=== PATIENT | male | born 1945 | race Two or more races ===

== ENCOUNTER 2024-06-08 19:23 | Inpatient (IN) | payer MEDICARE, OTHER ==
[~2024-06-08] VITALS: Ht 170.2 cm; Wt 82.6 kg
[2024-06-08] MEDS ORDERED: LIDOCAINE 2% JEL UROJET 10 ML MM ONE (19:40)
[2024-06-08] MEDS ORDERED: ACETAMINOPHEN 650 MG/SUPP.RECT RC ONE (19:43)
[2024-06-08] MEDS: PIPERACILLIN /TAZOBACTAM 3.375 G in IV D5W 50 ML IV ONE (19:56)
[2024-06-08] MEDS: IV NS 0.9% 1,000 ML BAG IV ONE (19:59)
[2024-06-08] MEDS: ACETAMINOPHEN 650 MG/SUPP.RECT RC ONE (19:59)
[2024-06-08] MEDS: ONDANSETRON HCL/PF 4 MG/2 ML VIAL IVP ONE (20:00)
[2024-06-08] MEDS ORDERED: ONDANSETRON HCL/PF 4 MG/2 ML VIAL ONE (20:00)
[2024-06-08 20:09] LABS: BASOPHILS % (AUTO) 0.1 % (0.0-2.0); HEMATOCRIT 30 % (39-51); HEMOGLOBIN 10.1 g/dL (13.5-17.5); LYMPHOCYTES # (AUTO) 0.3 K/uL (0.8-4.8); LYMPHOCYTES % (AUTO) 3.3 % (20.0-44.0); MEAN CORPUSCULAR HEMOGLOBIN 33 PG (26.0-33.0); MEAN CORPUSCULAR HGB CONC 33 g/dl (31.0-36.0); MEAN CORPUSCULAR VOLUME 99 fL (80-96); MONOCYTES % (AUTO) 84.4 % (2.0-12.0); NEUTROPHILS % (AUTO) 12.2 % (43.0-81.0); PLATELET COUNT (AUTO) 122 K/uL (150-450); RED BLOOD CELL COUNT(AUTO) 3.04 MIL/uL (4.5-6.0); RED CELL DISTRIBUTION WIDTH 19.7 % (11.5-15.0); WHITE BLOOD COUNT (AUTO) 8.3 K/uL (4.3-11.0)
[2024-06-08 20:23] LABS: CARBON DIOXIDE 19 mmol/L (21-32); CHLORIDE 105 mmol/L (98-107); CREATININE 3.1 mg/dL (0.6-1.3); GLUCOSE 75 mg/dL (74-106); POTASSIUM 3.2 mmol/L (3.5-5.1); SODIUM SERUM 139 mmol/L (136-145); UREA NITROGEN, BLOOD 33 mg/dL (7-18)
[2024-06-08 20:24] LABS: INR 1.61 (0.91-1.10); PARTIAL THROMBOPLASTIN TIME 35.8 SEC (24.3-34.3); PROTHROMBIN TIME 16.5 SECS (9.2-11.1)
[2024-06-08 20:31] LABS: ALANINE AMINOTRANSFERASE 16 U/L (12-78); ALBUMIN 2.9 g/dL (3.4-5.0); ALKALINE PHOSPHATASE 83 U/L (46-116); ASPARTATE AMINOTRANSFERASE 25 U/L (15-37); BILIRUBIN,DIRECT 0.6 mg/dL (0.0-0.2); BILIRUBIN,TOTAL 2.1 mg/dL (0.2-1.0); TOTAL PROTEIN, SERUM 7.3 g/dL (6.4-8.2)
[2024-06-08 20:35] LABS: BAND % (MANUAL) 9 % (0.0-5.0); LYMPHOCYTES % (MANUAL) 24 % (16-48); MONOCYTES % (MANUAL) 30 % (0-11.0); NEUTROPHILS % (MANUAL) 37 (42-76); PLATELET ESTIMATE DECREASED
[2024-06-08 20:40] LABS: LACTIC ACID 5.6 mmol/L (0.4-2.0)
[2024-06-08] MEDS ORDERED: NOREPINEPHRINE 8MG/250ML RTU 250 ML IV ONE (20:41)
[2024-06-08] MEDS ORDERED: dexaMETHasone SOD PHOSPHATE 1 ML ONE (20:51)
[2024-06-08] MEDS ORDERED: ALBUMIN 25% 100 ML IV ONE (20:52)
[2024-06-08] MEDS: dexaMETHasone SOD PHOSPHATE 10 MG/ML VIAL IV ONE (20:57)
[2024-06-08] MEDS: ALBUMIN 25% 12.5 GM/50 ML BOTTLE IV ONE (20:58)
[2024-06-08] MEDS: NOREPINEPHRINE 8 MG in IV NS 0.9% 250 ML IV ONE (21:06)
[2024-06-08] MEDS ORDERED: MAGNESIUM HYDROXIDE 30 ML UDC PO PRN (22:00)
[2024-06-08] MEDS ORDERED: MAG HYDROX/AL HYDROX/SIMETH 30 ML UDC PO PRN (22:00)
[2024-06-08] MEDS ORDERED: Z GUARD REMEDY 4 OZ OINT TP PRN (22:00)
[2024-06-08] MEDS ORDERED: ONDANSETRON HCL/PF 4 MG/2 ML VIAL IVP PRN (22:00)
[2024-06-08] MEDS ORDERED: DECITABINE PO (22:21)
[2024-06-08] MEDS ORDERED: PANT40TA2 PO (22:21)
[2024-06-08] MEDS ORDERED: [UNRECOGNIZED DRUG - OTHER] PO (22:21)
[2024-06-08 22:47] VITALS: BP 133/52; TEMP 99.5; O2SAT 95
[2024-06-08] MEDS: NOREPINEPHRINE 8 MG in IV D5W 242 ML IV PRN (22:57)
[2024-06-08 23:00] VITALS: BP 130/54; O2SAT 96
[2024-06-08] MEDS: IV NS 0.9% 1,000 ML IV SCH (23:00)
[2024-06-08 23:15] VITALS: BP 139/62; O2SAT 96
[2024-06-08] MEDS: VANCOMYCIN 1 GM in IV NS 0.9% 250 ML IV ONE (23:22)
[2024-06-08 23:30] VITALS: BP 108/47; O2SAT 96
[2024-06-08] MEDS: VANCOMYCIN 1 GM /D5W 250 ML PB IV ONE (23:33)
[2024-06-08] MEDS ORDERED: IV NS 0.9% 1,000 ML IV SCH (23:41)
[2024-06-08 23:45] VITALS: BP 95/43; O2SAT 96
[2024-06-09] VITALS (104 sets, daily range): BP systolic 69–130; BP diastolic 42–82; TEMP 98.5–99.5; O2SAT 94–99
[2024-06-09] MEDS ORDERED: PIPERACILLIN /TAZOBACTAM 3.375 G in IV D5W 50 ML IV SCH
[2024-06-09] MEDS ORDERED: IV NS 0.9% 250 ML IV PRN
[2024-06-09 01:26] LABS: APPEARANCE,URINE CLEAR (CLEAR); BILIRUBIN,URINE NEGATIVE (NEGATIVE); BLOOD, URINE 3+ Ery/uL (NEGATIVE); COLOR,URINE YELLOW (YELLOW); KETONES,URINE NEGATIVE (NEGATIVE); LEUKOCYTE ESTERASE ,URINE NEGATIVE (NEGATIVE); NITRITE, URINE NEGATIVE (NEGATIVE); PROTEIN,URINE 2+ mg/dl (NEGATIVE); UGLUCOSE TRACE mg/dL (NEGATIVE); UROBILINOGEN,URINE 0.2 EU/dL (0.2)
[2024-06-09 01:32] LABS: ADD URINE CULTURE NO; BACTERIA,URINE Rare /HPF (None Seen); SQUAMOUS EPITHELIAL CELL,UR Rare /HPF (None Seen); WBC,URINE 0-2 /HPF (0-3)
[2024-06-09 04:37] LABS: BASOPHILS % (AUTO) 0.2 % (0.0-2.0); EOSINOPHILS % (AUTO) 0.2 % (0.0-6.0); HEMATOCRIT 35 % (39-51); HEMOGLOBIN 11.3 g/dL (13.5-17.5); LYMPHOCYTES # (AUTO) 0.3 K/uL (0.8-4.8); MEAN CORPUSCULAR HEMOGLOBIN 33 PG (26.0-33.0); MEAN CORPUSCULAR HGB CONC 33 g/dl (31.0-36.0); MEAN CORPUSCULAR VOLUME 100 fL (80-96); MONOCYTES # (AUTO) 11.8 K/uL (0.1-1.30); MONOCYTES % (AUTO) 69.1 % (2.0-12.0); NEUTROPHILS # (AUTO) 4.9 K/uL (1.8-8.9); NEUTROPHILS % (AUTO) 28.5 % (43.0-81.0); PLATELET COUNT (AUTO) 118 K/uL (150-450); RED BLOOD CELL COUNT(AUTO) 3.46 MIL/uL (4.5-6.0); RED CELL DISTRIBUTION WIDTH 20.8 % (11.5-15.0); WHITE BLOOD COUNT (AUTO) 17.1 K/uL (4.3-11.0)
[2024-06-09 05:05] LABS: ALANINE AMINOTRANSFERASE 33 U/L (12-78); ALBUMIN 3.2 g/dL (3.4-5.0); ALKALINE PHOSPHATASE 68 U/L (46-116); ASPARTATE AMINOTRANSFERASE 108 U/L (15-37); BILIRUBIN,TOTAL 1.7 mg/dL (0.2-1.0); CALCIUM, SERUM 8.5 mg/dL (8.5-10.1); CARBON DIOXIDE 18 mmol/L (21-32); CHLORIDE 105 mmol/L (98-107); CREATININE 3.2 mg/dL (0.6-1.3); GLUCOSE 88 mg/dL (74-106); SODIUM SERUM 139 mmol/L (136-145); TOTAL PROTEIN, SERUM 7.9 g/dL (6.4-8.2); UREA NITROGEN, BLOOD 40 mg/dL (7-18)
[2024-06-09 05:45] LABS: ANISOCYTOSIS 1+; BAND % (MANUAL) 1 % (0.0-5.0); EOSINOPHILS % (MANUAL) 0 % (0-4); LYMPHOCYTES % (MANUAL) 2 % (16-48); MONOCYTES % (MANUAL) 66 % (0-11.0); NEUTROPHILS % (MANUAL) 31 (42-76); PLATELET ESTIMATE DECREASED
[2024-06-09] MEDS: PIPERACI/TAZO 3.375GM/D5W 50ML PB IV ONE (06:11)
[2024-06-09] MEDS: PIPERACILLIN /TAZOBACTAM 3.375 G in IV D5W 50 ML IV ONE (06:11)
[2024-06-09] MEDS: VANCOMYCIN 500 MG in IV D5W 100 ML IV ONE (08:12)
[2024-06-09] MEDS ORDERED: ALLO300T2 PO (09:13)
[2024-06-09] MEDS ORDERED: ALLOPURINAL PO (09:13)
[2024-06-09] MEDS: PANTOPRAZOLE 40 MG VIAL IV SCH (09:35)
[2024-06-09] MEDS: dexaMETHasone SOD PHOSPHATE 10 MG/ML VIAL IV SCH (09:35)
[2024-06-09] MEDS: ZOSYN IVPB 2.25 G in IV D5W 50ml IV SCH (12:11)
[2024-06-09] MEDS: LEVOFLOXACIN 500 MG /D5W 100ML 100 ML IV ONE (12:16)
[2024-06-09] MEDS: ACETAMINOPHEN 325 MG TABLET PO PRN (13:05)
[2024-06-09] MEDS: DOXYCYCLINE HYCLATE (100 MG) 100 MG TABLET PO SCH (21:10)
[2024-06-10] VITALS (85 sets, daily range): BP systolic 82–153; BP diastolic 43–91; TEMP 97.9–98.5; O2SAT 95–99
[2024-06-10] MEDS: ASPIRIN 81 MG TAB.CHEW PO ONE (00:43)
[2024-06-10 05:03] LABS: BASOPHILS % (AUTO) 0.1 % (0.0-2.0); HEMATOCRIT 35 % (39-51); HEMOGLOBIN 11.7 g/dL (13.5-17.5); LYMPHOCYTES # (AUTO) 0.3 K/uL (0.8-4.8); LYMPHOCYTES % (AUTO) 1.9 % (20.0-44.0); MEAN CORPUSCULAR HEMOGLOBIN 33 PG (26.0-33.0); MEAN CORPUSCULAR HGB CONC 34 g/dl (31.0-36.0); MEAN CORPUSCULAR VOLUME 99 fL (80-96); MONOCYTES # (AUTO) 10.7 K/uL (0.1-1.30); MONOCYTES % (AUTO) 59.7 % (2.0-12.0); NEUTROPHILS # (AUTO) 6.9 K/uL (1.8-8.9); NEUTROPHILS % (AUTO) 38.3 % (43.0-81.0); PLATELET COUNT (AUTO) 94 K/uL (150-450); RED BLOOD CELL COUNT(AUTO) 3.55 MIL/uL (4.5-6.0); RED CELL DISTRIBUTION WIDTH 20.7 % (11.5-15.0); WHITE BLOOD COUNT (AUTO) 17.9 K/uL (4.3-11.0)
[2024-06-10 05:17] LABS: ALANINE AMINOTRANSFERASE 36 U/L (12-78); ALBUMIN 2.9 g/dL (3.4-5.0); ALKALINE PHOSPHATASE 62 U/L (46-116); ASPARTATE AMINOTRANSFERASE 80 U/L (15-37); BILIRUBIN,TOTAL 1.9 mg/dL (0.2-1.0); CALCIUM, SERUM 8.8 mg/dL (8.5-10.1); CARBON DIOXIDE 23 mmol/L (21-32); CHLORIDE 105 mmol/L (98-107); CREATININE 2.3 mg/dL (0.6-1.3); GLUCOSE 111 mg/dL (74-106); MAGNESIUM 1.7 mg/dL (1.8-2.4); PHOSPHORUS 3.1 mg/dL (2.5-4.9); POTASSIUM 4.5 mmol/L (3.5-5.1); SODIUM SERUM 139 mmol/L (136-145); TOTAL PROTEIN, SERUM 7.6 g/dL (6.4-8.2); UREA NITROGEN, BLOOD 44 mg/dL (7-18)
[2024-06-10 05:24] LABS: CREATINE KINASE, TOTAL 314 U/L (39-308)
[2024-06-10 06:00] LABS: EOSINOPHILS % (MANUAL) 0 % (0-4); LYMPHOCYTES % (MANUAL) 6 % (16-48); NEUTROPHILS % (MANUAL) 42 (42-76)
[2024-06-10 06:01] LABS: ANISOCYTOSIS 1+; BASOPHILS % (MANUAL) 0 % (0.0-2.0); MONOCYTES % (MANUAL) 52 % (0-11.0); PLATELET ESTIMATE DECREASED
[2024-06-10] MEDS: PANTOPRAZOLE 40 MG TABLET.DR PO SCH (08:39)
[2024-06-10] MEDS ORDERED: HYDROCORTISONE SOD SUCCINATE 100 MG/2 ML VIAL IV SCH (09:30)
[2024-06-10] MEDS: MAGNESIUM OXIDE 400 MG TABLET PO ONE (10:23)
[2024-06-10] MEDS ORDERED: VANCOMYCIN 750 MG in IV D5W 250 ML IV SCH (16:00)
[2024-06-10] MEDS ORDERED: CEFEPIME 1 GM VIAL ONE (21:58)
[2024-06-10] MEDS: CEFEPIME 1 GM in IV D5W 50 ML IV SCH (22:06)
[2024-06-11] VITALS (20 sets, daily range): BP systolic 86–106; BP diastolic 55–67; TEMP 97.8–98.2; O2SAT 95–99
[2024-06-11 04:46] LABS: BASOPHILS % (AUTO) 0.1 % (0.0-2.0); EOSINOPHILS % (AUTO) 0.1 % (0.0-6.0); HEMATOCRIT 32 % (39-51); HEMOGLOBIN 11.2 g/dL (13.5-17.5); LYMPHOCYTES # (AUTO) 0.3 K/uL (0.8-4.8); LYMPHOCYTES % (AUTO) 6.6 % (20.0-44.0); MEAN CORPUSCULAR HEMOGLOBIN 34 PG (26.0-33.0); MEAN CORPUSCULAR HGB CONC 35 g/dl (31.0-36.0); MEAN CORPUSCULAR VOLUME 97 fL (80-96); MONOCYTES # (AUTO) 2.1 K/uL (0.1-1.30); MONOCYTES % (AUTO) 40.2 % (2.0-12.0); NEUTROPHILS # (AUTO) 2.8 K/uL (1.8-8.9); PLATELET COUNT (AUTO) 212 K/uL (150-450); RED CELL DISTRIBUTION WIDTH 21.4 % (11.5-15.0); WHITE BLOOD COUNT (AUTO) 5.3 K/uL (4.3-11.0)
[2024-06-11 05:54] LABS: ANISOCYTOSIS 1+; BASOPHILS % (MANUAL) 0 % (0.0-2.0); EOSINOPHILS % (MANUAL) 0 % (0-4); LYMPHOCYTES % (MANUAL) 9 % (16-48); MONOCYTES % (MANUAL) 33 % (0-11.0); NEUTROPHILS % (MANUAL) 58 (42-76); PLATELET ESTIMATE ADEQUATE
[2024-06-11 06:47] LABS: ALANINE AMINOTRANSFERASE 33 U/L (12-78); ALBUMIN 2.7 g/dL (3.4-5.0); ALKALINE PHOSPHATASE 57 U/L (46-116); ASPARTATE AMINOTRANSFERASE 30 U/L (15-37); BILIRUBIN,TOTAL 1.6 mg/dL (0.2-1.0); CALCIUM, SERUM 9.1 mg/dL (8.5-10.1); CARBON DIOXIDE 22 mmol/L (21-32); CHLORIDE 105 mmol/L (98-107); CREATININE 1.5 mg/dL (0.6-1.3); GLUCOSE 109 mg/dL (74-106); POTASSIUM 4.3 mmol/L (3.5-5.1); SODIUM SERUM 135 mmol/L (136-145); TOTAL PROTEIN, SERUM 7.3 g/dL (6.4-8.2); UREA NITROGEN, BLOOD 55 mg/dL (7-18)
[2024-06-11 11:08] LABS: *SPE A/G RATIO 0.6 (0.7-1.7); *SPE ALBUMIN 2.8 g/dL (2.9-4.4); *SPE ALPHA-1-GLOBULIN 0.3 g/dL (0.0-0.4); *SPE ALPHA-2-GLOBULIN 0.6 g/dL (0.4-1.0); *SPE BETA GLOBULIN 0.8 g/dL (0.7-1.3); *SPE GLOBULIN, TOTAL 4.4 g/dL (2.2-3.9); *SPE M-SPIKE Not Observed g/dL (Not Observed); *SPE PROTEIN TOTAL 7.2 g/dL (6.0-8.5); *SPEGAMMA GLOBULIN 2.7 g/dL (0.4-1.8)
[2024-06-11] MEDS: LEVOFLOXACIN 250 MG /D5W 50 ML 250 MG in PREMIX 1 EA IV SCH (11:22)
[2024-06-11 12:09] LABS: PTH, INTACT 21 pg/mL (15-65)
[2024-06-11 14:33] LABS: MAGNESIUM 1.7 mg/dL (1.8-2.4); PHOSPHORUS 2.7 mg/dL (2.5-4.9)
[2024-06-12] VITALS: BP 94/56; TEMP 98.6; O2SAT 96
[2024-06-12 06:00] VITALS: O2SAT 97
[2024-06-12 07:55] LABS: ALANINE AMINOTRANSFERASE 41 U/L (12-78); ALBUMIN 2.7 g/dL (3.4-5.0); ALKALINE PHOSPHATASE 72 U/L (46-116); ASPARTATE AMINOTRANSFERASE 27 U/L (15-37); BILIRUBIN,TOTAL 1.8 mg/dL (0.2-1.0); CALCIUM, SERUM 9.1 mg/dL (8.5-10.1); CARBON DIOXIDE 24 mmol/L (21-32); CHLORIDE 104 mmol/L (98-107); CREATININE 1.2 mg/dL (0.6-1.3); GLUCOSE 76 mg/dL (74-106); MAGNESIUM 1.7 mg/dL (1.8-2.4); PHOSPHORUS 2.8 mg/dL (2.5-4.9); POTASSIUM 3.8 mmol/L (3.5-5.1); SODIUM SERUM 135 mmol/L (136-145); TOTAL PROTEIN, SERUM 7.4 g/dL (6.4-8.2); UREA NITROGEN, BLOOD 44 mg/dL (7-18)
[2024-06-12 08:07] LABS: BASOPHILS % (AUTO) 0.3 % (0.0-2.0); EOSINOPHILS % (AUTO) 0.2 % (0.0-6.0); HEMATOCRIT 34 % (39-51); HEMOGLOBIN 11.3 g/dL (13.5-17.5); LYMPHOCYTES # (AUTO) 0.6 K/uL (0.8-4.8); LYMPHOCYTES % (AUTO) 10.4 % (20.0-44.0); MEAN CORPUSCULAR HEMOGLOBIN 32 PG (26.0-33.0); MEAN CORPUSCULAR HGB CONC 33 g/dl (31.0-36.0); MEAN CORPUSCULAR VOLUME 97 fL (80-96); MONOCYTES # (AUTO) 1.9 K/uL (0.1-1.30); MONOCYTES % (AUTO) 31.5 % (2.0-12.0); NEUTROPHILS # (AUTO) 3.5 K/uL (1.8-8.9); NEUTROPHILS % (AUTO) 57.6 % (43.0-81.0); PLATELET COUNT (AUTO) 107 K/uL (150-450); RED CELL DISTRIBUTION WIDTH 19.7 % (11.5-15.0); WHITE BLOOD COUNT (AUTO) 6.1 K/uL (4.3-11.0)
[2024-06-12] MEDS: MAGNESIUM OXIDE 400 MG TABLET PO ONE (09:49)
[2024-06-12 10:05] VITALS: O2SAT 95
[2024-06-12] MEDS ORDERED: METOPROLOL TARTRATE INJ 5 MG/5 ML AMPUL ONE (14:02)
[2024-06-12] MEDS ORDERED: NITROGLYCERIN 0.4 MG/TAB BOTTLE ONE (14:02)
[2024-06-12] MEDS ORDERED: IOHEXOL-350 100 ML VIAL IV ONE (14:02)
[2024-06-12] MEDS ORDERED: IV NS 0.9% 250 ML IV ONE (14:03)
[2024-06-12] MEDS ORDERED: CT SWABBABLE VALVE TRANS SET 1 EA INFUS.SET MC ONE (14:03)
[2024-06-12] MEDS: METOPROLOL TARTRATE INJ 5 MG/5 ML AMPUL IVP PRN (14:36)
[2024-06-12] MEDS: NITROGLYCERIN 0.4 MG/TAB BOTTLE SL ONE (14:46)
[2024-06-12 20:00] VITALS: BP 100/58; TEMP 98.6; O2SAT 93
[2024-06-12 20:40] VITALS: O2SAT 94
[2024-06-13] VITALS (10 sets, daily range): BP systolic 95–128; BP diastolic 54–77; TEMP 97.7–98.8; O2SAT 92–99
[2024-06-13 06:05] LABS: CALCIUM, SERUM 8.7 mg/dL (8.5-10.1); CARBON DIOXIDE 22 mmol/L (21-32); CHLORIDE 102 mmol/L (98-107); GLUCOSE 95 mg/dL (74-106); MAGNESIUM 1.4 mg/dL (1.8-2.4); PHOSPHORUS 3.1 mg/dL (2.5-4.9); POTASSIUM 3.8 mmol/L (3.5-5.1); SODIUM SERUM 134 mmol/L (136-145); UREA NITROGEN, BLOOD 39 mg/dL (7-18)
[2024-06-13 06:12] LABS: BASOPHILS % (AUTO) 0.1 % (0.0-2.0); EOSINOPHILS % (AUTO) 0.5 % (0.0-6.0); HEMATOCRIT 36 % (39-51); HEMOGLOBIN 11.9 g/dL (13.5-17.5); LYMPHOCYTES # (AUTO) 0.8 K/uL (0.8-4.8); LYMPHOCYTES % (AUTO) 8.2 % (20.0-44.0); MEAN CORPUSCULAR HEMOGLOBIN 32 PG (26.0-33.0); MEAN CORPUSCULAR HGB CONC 34 g/dl (31.0-36.0); MEAN CORPUSCULAR VOLUME 97 fL (80-96); MONOCYTES # (AUTO) 4.9 K/uL (0.1-1.30); MONOCYTES % (AUTO) 50.5 % (2.0-12.0); NEUTROPHILS # (AUTO) 3.9 K/uL (1.8-8.9); NEUTROPHILS % (AUTO) 40.7 % (43.0-81.0); PLATELET COUNT (AUTO) 123 K/uL (150-450); RED BLOOD CELL COUNT(AUTO) 3.67 MIL/uL (4.5-6.0); RED CELL DISTRIBUTION WIDTH 19.8 % (11.5-15.0); WHITE BLOOD COUNT (AUTO) 9.7 K/uL (4.3-11.0)
[2024-06-13 07:26] LABS: ANISOCYTOSIS 1+; BASOPHILS % (MANUAL) 0 % (0.0-2.0); EOSINOPHILS % (MANUAL) 0 % (0-4); LYMPHOCYTES % (MANUAL) 9 % (16-48); MONOCYTES % (MANUAL) 49 % (0-11.0); NEUTROPHILS % (MANUAL) 42 (42-76); PLATELET ESTIMATE DECREASED
[2024-06-13] MEDS: Magnesium 1GM/D5W 100ML PREMIX 100 ML IV SCH (08:51)
[2024-06-14 00:10] VITALS: BP 106/57; TEMP 98.2; O2SAT 96
[2024-06-14 04:11] VITALS: BP 107/51; TEMP 98.4; O2SAT 98
[2024-06-14 06:40] LABS: CALCIUM, SERUM 8.6 mg/dL (8.5-10.1); CARBON DIOXIDE 23 mmol/L (21-32); CHLORIDE 101 mmol/L (98-107); GLUCOSE 109 mg/dL (74-106); POTASSIUM 3.9 mmol/L (3.5-5.1); SODIUM SERUM 131 mmol/L (136-145); UREA NITROGEN, BLOOD 26 mg/dL (7-18)
[2024-06-14 07:30] VITALS: BP 108/60; TEMP 98.6; O2SAT 96
[2024-06-14] MEDS: LEVOFLOXACIN (250MG) 250 MG TABLET PO SCH (11:09)
[2024-06-14] MEDS ORDERED: LEVO500T90 PO ×2 (12:11→15:18)
[2024-06-14 20:11] LABS: *MYCOPLASMA PNEUMONIAE IgG 331 U/mL (0-99); *MYCOPLASMA PNEUMONIAE IgM <770 U/mL (0-769)
[2024-06-14 21:06] LABS: LEGIONELLA PNEUMOPHILIA AB Non Reactive (Non Reactive)
== END 2024-06-14 16:00 | disposition home health service (06) | DRG 871 ==
LOC: ER 19:25 → ICU 21:39 → TELE 06-11 18:10 → MED 06-14 12:18
PROVIDERS: ATTEND Student in an Organized Health Care Education/Training Program
PROC: 5A09357 Assistance with Respiratory Ventilation, Less than 24 Consecutive Hours, Continuous Positive Airway Pressure (ICD-10-PCS; principal; 2024-06-09)
DX: A41.9 Sepsis, unspecified organism (principal); G93.41 Metabolic encephalopathy; I21.A1 Myocardial infarction type 2; J15.69 Pneumonia due to other Gram-negative bacteria; R65.21 Severe sepsis with septic shock; J15.9 Unspecified bacterial pneumonia; J96.01 Acute respiratory failure with hypoxia; D84.9 Immunodeficiency, unspecified; E87.1 Hypo-osmolality and hyponatremia; E87.20 Acidosis, unspecified; N17.9 Acute kidney failure, unspecified; J90 Pleural effusion, not elsewhere classified; C92.10 Chronic myeloid leukemia, BCR/ABL-positive, not having achieved remission; E44.1 Mild protein-calorie malnutrition; D53.9 Nutritional anemia, unspecified; D69.6 Thrombocytopenia, unspecified; E86.9 Volume depletion, unspecified; E87.6 Hypokalemia; I25.10 Atherosclerotic heart disease of native coronary artery without angina pectoris; Z20.822 Contact with and (suspected) exposure to COVID-19; E88.09 Other disorders of plasma-protein metabolism, not elsewhere classified; Z68.28 Body mass index [BMI] 28.0-28.9, adult; M89.8X9 Other specified disorders of bone, unspecified site; Z87.11 Personal history of peptic ulcer disease; Z79.60 Long term (current) use of unspecified immunomodulators and immunosuppressants; N18.9 Chronic kidney disease, unspecified
CPT/HCPCS: 36415; 70450-TC; 71045-TC; 75574; 76770-TC; 80048-TC; 80053-TC; 80076-TC; 80202-TC; 81001; 82533; 82550-TC; 82553; 82962-TC; 83605-TC; 83735-TC; 83970; 84100-TC; 84155; 84165; 84484-TC; 85025-TC; 85730-TC; 86713; 86738; 87040-TC; 87086-TC; 93307-TC; 94660; 94761-TC; 94762-TC; 94799-TC; 97110-TC; 97116-TC; 97530-TC; A4216; A4223; G0378; J0692; J1100; J1956; J2405; J2470; J2543; J3370; J3475; J3490; J7030; J7050; J7060; P9047; Q9967